=== PATIENT | male | born 1985 | race Caucasian/White ===

== ENCOUNTER 2018-08-20 09:26 | Emergency (ER) | payer MEDICAID ==
[~2018-08-20] VITALS: Ht 180.3 cm; Wt 167.8 kg
[2018-08-20 09:32] VITALS: BP 153/96
== END 2018-08-20 11:07 | disposition home or self-care (01) ==
LOC: ER 09:41
DX: S80.11XA Contusion of right lower leg, initial encounter (principal); F17.210 Nicotine dependence, cigarettes, uncomplicated; W18.39XA Other fall on same level, initial encounter; Y93.89 Activity, other specified; Y99.8 Other external cause status; Y92.89 Other specified places as the place of occurrence of the external cause
CPT/HCPCS: 73590

== ENCOUNTER 2020-07-14 14:55 | Emergency (ER) | payer MEDICAID ==
[~2020-07-14] VITALS: Ht 180.3 cm; Wt 176.9 kg
[2020-07-14 16:04] VITALS: BP 149/95
[2020-07-14] MEDS ORDERED: KETOROLAC TROMETH 60MG/2ML VIAL IM ONE (16:45)
[2020-07-14] MEDS ORDERED: METHOCARBAMOL 500 MG TAB PO ONE (16:45)
== END 2020-07-14 17:13 | disposition home or self-care (01) ==
LOC: ER 14:55
DX: S39.012A Strain of muscle, fascia and tendon of lower back, initial encounter (principal); E66.01 Morbid (severe) obesity due to excess calories; F17.210 Nicotine dependence, cigarettes, uncomplicated; Z68.43 Body mass index [BMI] 50.0-59.9, adult; Z88.8 Allergy status to other drugs, medicaments and biological substances; X58.XXXA Exposure to other specified factors, initial encounter; Y93.89 Activity, other specified; Y92.89 Other specified places as the place of occurrence of the external cause; Y99.8 Other external cause status
CPT/HCPCS: 96372; 99283; J1885

== ENCOUNTER 2020-09-10 16:56 | Emergency (ER) | payer MEDICAID ==
[~2020-09-10] VITALS: Ht 180.3 cm; Wt 172.4 kg
[2020-09-10] MEDS ORDERED: ACETAMINOPHEN 500 MG TAB PO ONE (17:15)
[2020-09-10] MEDS ORDERED: cloNIDine HCL 0.1 MG TAB ONE (17:23)
[2020-09-10] MEDS ORDERED: cloNIDine HCL 0.1 MG TAB PO ONE (17:30)
[2020-09-10] MEDS ORDERED: SODIUM CHLORIDE 0.9% 1,000 ML IV ONE (17:30)
[2020-09-10 19:04] LABS: Basophils # (auto) 0 10 ^3/uL (0-0.2); Basophils % (auto) 0.5 % (0.0-2.0); Eosinophils # (auto) 0 10 ^3/uL (0-0.8); Eosinophils % (auto) 0.1 % (0.0-7.0); Hematocrit 44.5 % (41.0-53.0); Lymphocytes % (auto) 11.7 % (10.0-50.0); Mean Corpuscular Hemoglobin 27.6 pg (28.0-32.0); Mean Corpuscular Hgb Conc. 33.7 g/dL (32.0-36.0); Monocytes # (auto) 0.9 10 ^3/uL (0-1.3); Monocytes % (auto) 11.2 % (0.0-12.0); Neutrophils # (auto) 6.4 10 ^3/uL (1.6-8.6); Neutrophils % (auto) 76.5 % (37.0-80.0); Nucleated Red Blood Cells % 0.1 %; Red Blood Cells 5.43 10^6/uL (4.5-5.90); Red Cell Distribution Width 14.3 % (11.8-14.3); White Blood Cell 8.3 10^3/uL (4.4-10.8)
[2020-09-10 19:10] LABS: Albumin 3.8 g/dL (3.4-5.0); BUN/Creatinine Ratio 7.5; Calcium 8.6 mg/dL (8.5-10.1); Potassium 3.7 mmol/L (3.5-5.1)
[2020-09-10 19:13] LABS: Bilirubin, Total 0.6 mg/dL (0.2-1.0)
[2020-09-10 20:00] VITALS: BP 118/51
[2020-09-10] MEDS ORDERED: ONDANSETRON HCL 4 MG/2 ML VIAL IV ONE (21:00)
[2020-09-10] MEDS ORDERED: HYDROmorphone HCL 2 MG/ML VL IV ONE (21:00)
== END 2020-09-10 20:57 | disposition home or self-care (01) ==
LOC: ER 16:56
DX: I16.0 Hypertensive urgency (principal); I10 Essential (primary) hypertension; E66.01 Morbid (severe) obesity due to excess calories; J45.909 Unspecified asthma, uncomplicated; F17.210 Nicotine dependence, cigarettes, uncomplicated; Z68.43 Body mass index [BMI] 50.0-59.9, adult; Z20.822 Contact with and (suspected) exposure to COVID-19
CPT/HCPCS: 36415; 71045; 80053; 85025; 87426; 93005; 96360; 99285; J7030

== ENCOUNTER 2020-09-11 11:21 | Emergency (ER) | payer MEDICAID ==
[~2020-09-11] VITALS: Ht 180.3 cm; Wt 172.4 kg
[2020-09-11] MEDS ORDERED: ACETAMINOPHEN 500 MG TAB PO ONE (12:00)
[2020-09-11 12:32] LABS: Basophils # (auto) 0 10 ^3/uL (0-0.2); Basophils % (auto) 0.5 % (0.0-2.0); Eosinophils # (auto) 0 10 ^3/uL (0-0.8); Hematocrit 44.5 % (41.0-53.0); Lymphocytes # (auto) 0.9 10 ^3/uL (0.4-5.4); Lymphocytes % (auto) 10.8 % (10.0-50.0); Mean Corpuscular Hemoglobin 27.5 pg (28.0-32.0); Mean Corpuscular Hgb Conc. 33.6 g/dL (32.0-36.0); Mean Corpuscular Volume 81.8 fL (80.0-100.0); Monocytes # (auto) 0.7 10 ^3/uL (0-1.3); Monocytes % (auto) 8.5 % (0.0-12.0); Neutrophils # (auto) 6.4 10 ^3/uL (1.6-8.6); Neutrophils % (auto) 80.2 % (37.0-80.0); Red Blood Cells 5.43 10^6/uL (4.5-5.90); Red Cell Distribution Width 14.1 % (11.8-14.3)
[2020-09-11 12:57] LABS: Albumin 3.9 g/dL (3.4-5.0); Calcium 8.8 mg/dL (8.5-10.1); Potassium 3.7 mmol/L (3.5-5.1)
[2020-09-11 13:01] LABS: BUN/Creatinine Ratio 8.8; Bilirubin, Total 0.8 mg/dL (0.2-1.0); Total Protein 8.4 g/dL (6.4-8.2)
[2020-09-11 14:57] VITALS: BP 116/43
== END 2020-09-11 15:16 | disposition home or self-care (01) ==
LOC: ER 11:21
DX: I16.0 Hypertensive urgency (principal); I10 Essential (primary) hypertension; E66.01 Morbid (severe) obesity due to excess calories; J45.909 Unspecified asthma, uncomplicated; F17.210 Nicotine dependence, cigarettes, uncomplicated; Z68.43 Body mass index [BMI] 50.0-59.9, adult; Z20.822 Contact with and (suspected) exposure to COVID-19; Z88.8 Allergy status to other drugs, medicaments and biological substances
CPT/HCPCS: 36415; 71045; 80053; 82728; 85025; 86141; 87426; 87804; 93005; 99285; C9803; U0003

== ENCOUNTER 2020-09-17 10:10 | Emergency (ER) | payer MEDICAID ==
[~2020-09-17] VITALS: Ht 180.3 cm; Wt 167.8 kg
[2020-09-17 11:00] VITALS: BP 147/85
== END 2020-09-17 13:08 | disposition home or self-care (01) ==
LOC: ER 10:10
DX: G44.209 Tension-type headache, unspecified, not intractable (principal); E86.0 Dehydration; J45.909 Unspecified asthma, uncomplicated; I10 Essential (primary) hypertension; Z90.89 Acquired absence of other organs
CPT/HCPCS: 70450; 81002

== ENCOUNTER 2022-02-05 16:54 | Emergency (ER) | payer MEDICAID ==
[~2022-02-05] VITALS: Ht 180.3 cm; Wt 178.0 kg
[2022-02-05 17:56] VITALS: BP 157/92
[2022-02-05] MEDS ORDERED: methylPREDNISolone SOD SUCC 125 MG/2 ML VL IM ONE (18:00)
[2022-02-05] MEDS ORDERED: AZITTAB PO (18:05)
[2022-02-05] MEDS ORDERED: PRED20TA2 PO (18:05)
[2022-02-05] MEDS ORDERED: IPR002IS HHN (18:15)
[2022-02-05] MEDS ORDERED: ALBU1.257 HHN (18:15)
== END 2022-02-05 20:15 | disposition home or self-care (01) ==
LOC: ER 16:54
DX: J45.901 Unspecified asthma with (acute) exacerbation (principal); I10 Essential (primary) hypertension; F17.200 Nicotine dependence, unspecified, uncomplicated
CPT/HCPCS: 71045; 99283; J2930

== ENCOUNTER 2022-04-11 15:20 | Emergency (ER) | payer MEDICAID ==
[~2022-04-11] VITALS: Ht 180.3 cm; Wt 163.3 kg
[~2022-04-11 15:20] MED LIST: ALBU1.257 HHN; AZITTAB PO; IPR002IS HHN; PRED20TA2 PO
[2022-04-11 17:19] VITALS: BP 175/88
[2022-04-11] MEDS ORDERED: NAPR500T31 PO (17:19)
[2022-04-11] MEDS ORDERED: AUG875T PO (17:32)
== END 2022-04-11 17:31 | disposition home or self-care (01) ==
LOC: ER 15:20
DX: S90.31XA Contusion of right foot, initial encounter (principal); H65.191 Other acute nonsuppurative otitis media, right ear; I10 Essential (primary) hypertension; J45.909 Unspecified asthma, uncomplicated; Z87.891 Personal history of nicotine dependence; Z79.2 Long term (current) use of antibiotics; Z79.1 Long term (current) use of non-steroidal anti-inflammatories (NSAID); Z79.899 Other long term (current) drug therapy; Z88.8 Allergy status to other drugs, medicaments and biological substances; W20.8XXA Other cause of strike by thrown, projected or falling object, initial encounter; Y93.89 Activity, other specified; Y92.89 Other specified places as the place of occurrence of the external cause; Y99.8 Other external cause status
CPT/HCPCS: 73630

== ENCOUNTER 2022-07-04 17:26 | Emergency (ER) | payer MEDICAID ==
[~2022-07-04] VITALS: Ht 180.3 cm; Wt 172.7 kg
[~2022-07-04 17:26] MED LIST changes: +AUG875T PO; +NAPR500T31 PO
[2022-07-04 18:22] LABS: Urine WBC None Seen /hpf (0 - 3)
[2022-07-04 18:28] LABS: Eosinophils # (auto) 0.2 10 ^3/uL (0-0.8); Eosinophils % (auto) 2.3 % (0.0-7.0); Hemoglobin 14.1 g/dL (13.5-17.5); Lymphocytes # (auto) 2.3 10 ^3/uL (0.4-5.4); Mean Corpuscular Hgb Conc. 32.9 g/dL (32.0-36.0); Monocytes # (auto) 0.8 10 ^3/uL (0-1.3); Red Blood Cells 5.23 10^6/uL (4.5-5.90); Red Cell Distribution Width 14.1 % (11.8-14.3)
[2022-07-04 18:30] LABS: Basophils # (auto) 0.1 10 ^3/uL (0-0.2); Basophils % (auto) 0.6 % (0.0-2.0); Hematocrit 42.9 % (41.0-53.0); Lymphocytes % (auto) 21.1 % (10.0-50.0); Mean Corpuscular Volume 82.1 fL (80.0-100.0); Monocytes % (auto) 7.5 % (0.0-12.0); Neutrophils # (auto) 7.4 10 ^3/uL (1.6-8.6); Neutrophils % (auto) 68.5 % (37.0-80.0); Nucleated Red Blood Cells % 0.2 %; White Blood Cell 10.8 10^3/uL (4.4-10.8)
[2022-07-04 18:32] LABS: Urine Bacteria NONE SEEN /hpf (None Seen); Urine Blood Negative /uL (Negative); Urine Specific Gravity 1.026 (1.001-1.035)
[2022-07-04 18:34] LABS: Albumin 4.1 g/dL (3.4-5.0); Calcium 9.2 mg/dL (8.5-10.1); Magnesium 2.3 mg/dL (1.6-2.6); Potassium 4.3 mmol/L (3.5-5.1)
[2022-07-04 18:37] LABS: BUN/Creatinine Ratio 12.5 (10.0-20.0); Bilirubin, Total 0.3 mg/dL (0.2-1.0); Total Protein 7.1 g/dL (6.4-8.2)
[2022-07-04 18:44] LABS: INR 0.95 (0.9-1.15)
[2022-07-04 18:51] LABS: Alcohol, Urine < 3.0 mg/dL (0-10); Amphetamine Screen, Urine NEGATIVE (NEGATIVE); Barbiturate Scree,Urine NEGATIVE (NEGATIVE); Benzodiazephine Screen, Urine NEGATIVE (NEGATIVE); Cannabinoid Screen, Urine NEGATIVE (NEGATIVE); Cocaine Screen, Urine NEGATIVE (NEGATIVE); Opiate Scree,Urine NEGATIVE (NEGATIVE); Phencyclidine Screen, Urine NEGATIVE (NEGATIVE)
[2022-07-04] MEDS ORDERED: CYCL-837 PO (20:29)
[2022-07-04] MEDS ORDERED: IBUP800T26 PO ×2 (20:29)
[2022-07-04 21:10] VITALS: BP 142/96
[2022-07-04] MEDS ORDERED: NAPR500T31 PO (21:15)
== END 2022-07-04 21:11 | disposition home or self-care (01) ==
LOC: ER 17:26
DX: S29.011A Strain of muscle and tendon of front wall of thorax, initial encounter (principal); S46.912A Strain of unspecified muscle, fascia and tendon at shoulder and upper arm level, left arm, initial encounter; E66.01 Morbid (severe) obesity due to excess calories; J45.909 Unspecified asthma, uncomplicated; I10 Essential (primary) hypertension; F17.200 Nicotine dependence, unspecified, uncomplicated; Z68.43 Body mass index [BMI] 50.0-59.9, adult; Z88.8 Allergy status to other drugs, medicaments and biological substances; X58.XXXA Exposure to other specified factors, initial encounter; Y93.89 Activity, other specified; Y92.89 Other specified places as the place of occurrence of the external cause; Y99.8 Other external cause status
CPT/HCPCS: 36415; 71045; 80053; 80307; 81001; 83735; 83880; 84484; 85025; 85610; 85730; 93005

== ENCOUNTER 2022-10-01 10:52 | Emergency (ER) | payer MEDICAID ==
[~2022-10-01] VITALS: Ht 182.9 cm; Wt 175.0 kg
[~2022-10-01 10:52] MED LIST changes: -ALBU1.257 HHN; +ALBU1.258 HHN; +CYCL-837 PO; +NAPR-746 PO; -NAPR500T31 PO
[2022-10-01 11:48] LABS: Basophils # (auto) 0 10 ^3/uL (0-0.2); Basophils % (auto) 0.3 % (0.0-2.0); Eosinophils # (auto) 0.1 10 ^3/uL (0-0.8); Eosinophils % (auto) 1.2 % (0.0-7.0); Hematocrit 43.5 % (41.0-53.0); Hemoglobin 14.5 g/dL (13.5-17.5); Lymphocytes # (auto) 1.3 10 ^3/uL (0.4-5.4); Lymphocytes % (auto) 14.5 % (10.0-50.0); Mean Corpuscular Hemoglobin 27.3 pg (28.0-32.0); Mean Corpuscular Hgb Conc. 33.4 g/dL (32.0-36.0); Mean Corpuscular Volume 81.6 fL (80.0-100.0); Monocytes # (auto) 0.9 10 ^3/uL (0-1.3); Monocytes % (auto) 9.6 % (0.0-12.0); Neutrophils # (auto) 6.7 10 ^3/uL (1.6-8.6); Neutrophils % (auto) 74.4 % (37.0-80.0); Red Blood Cells 5.32 10^6/uL (4.5-5.90); Red Cell Distribution Width 14.2 % (11.8-14.3)
[2022-10-01 12:12] LABS: Albumin 3.3 g/dL (3.4-5.0); Calcium 8.2 mg/dL (8.5-10.1); Potassium 3.9 mmol/L (3.5-5.1)
[2022-10-01 12:15] LABS: BUN/Creatinine Ratio 9.9 (10.0-20.0); Bilirubin, Total 0.3 mg/dL (0.2-1.0); Total Protein 7.5 g/dL (6.4-8.2)
[2022-10-01] MEDS ORDERED: FUROSEMIDE 40 MG/4 ML VIAL IV ONE (13:15)
[2022-10-01] MEDS ORDERED: AZIT1POW PO (15:52)
[2022-10-01 15:53] LABS: COVID19 ANTIGEN SOFIA FIA NEGATIVE (NEGATIVE)
[2022-10-01 16:58] VITALS: BP 148/93; PULSE 103; RESP 19; TEMP 98.6; O2SAT 97
== END 2022-10-01 17:16 | disposition home or self-care (01) ==
LOC: ER 10:52 → EDBD 10:52 → ER 17:16
DX: J20.9 Acute bronchitis, unspecified (principal); R07.89 Other chest pain; R09.89 Other specified symptoms and signs involving the circulatory and respiratory systems; I10 Essential (primary) hypertension; J45.909 Unspecified asthma, uncomplicated; Z90.49 Acquired absence of other specified parts of digestive tract; Z79.2 Long term (current) use of antibiotics; Z79.899 Other long term (current) drug therapy; Z88.8 Allergy status to other drugs, medicaments and biological substances; Z20.822 Contact with and (suspected) exposure to COVID-19
CPT/HCPCS: 36415; 71045; 80053; 83880; 84484; 85025; 87426; 93005; 96374; 99285; J1940

== ENCOUNTER 2022-10-03 06:14 | Emergency (ER) | payer MEDICAID ==
[~2022-10-03] VITALS: Ht 180.3 cm; Wt 170.2 kg
[~2022-10-03 06:14] MED LIST changes: +AZIT1POW PO
[2022-10-03 07:30] LABS: Basophils # (auto) 0 10 ^3/uL (0-0.2); Basophils % (auto) 0.3 % (0.0-2.0); Eosinophils # (auto) 0.1 10 ^3/uL (0-0.8); Eosinophils % (auto) 1.8 % (0.0-7.0); Hematocrit 45.8 % (41.0-53.0); Hemoglobin 15.2 g/dL (13.5-17.5); Lymphocytes # (auto) 1.6 10 ^3/uL (0.4-5.4); Lymphocytes % (auto) 20.7 % (10.0-50.0); Mean Corpuscular Hgb Conc. 33.1 g/dL (32.0-36.0); Mean Corpuscular Volume 81.4 fL (80.0-100.0); Monocytes # (auto) 1.1 10 ^3/uL (0-1.3); Monocytes % (auto) 14.3 % (0.0-12.0); Neutrophils # (auto) 4.8 10 ^3/uL (1.6-8.6); Neutrophils % (auto) 62.9 % (37.0-80.0); Nucleated Red Blood Cells % 0.1 %; Red Blood Cells 5.63 10^6/uL (4.5-5.90); Red Cell Distribution Width 14.2 % (11.8-14.3); White Blood Cell 7.7 10^3/uL (4.4-10.8)
[2022-10-03 07:33] LABS: Urine Bacteria NONE SEEN /hpf (None Seen); Urine Blood Negative /uL (Negative); Urine Clarity Clear (Clear); Urine Color Yellow (Yellow); Urine Protein, UAD TRACE (Negative); Urine Specific Gravity 1.025 (1.001-1.035); Urine Urobilinogen Normal (Negative); Urine WBC 1 /hpf (0 - 3); Urine pH 5.5 (5.0-8.0)
[2022-10-03 07:41] LABS: Potassium 4.9 mmol/L (3.5-5.1)
[2022-10-03 07:49] LABS: Albumin 3.2 g/dL (3.4-5.0); BUN/Creatinine Ratio 10.9 (10.0-20.0); Bilirubin, Total 0.4 mg/dL (0.2-1.0); Calcium 8.5 mg/dL (8.5-10.1); Total Protein 7.8 g/dL (6.4-8.2)
[2022-10-03] MEDS ORDERED: IOHEXOL 350 MG/ML 100ML IJ ONE (09:14)
[2022-10-03] MEDS ORDERED: ENOXAPARIN SOD 150 MG/1 ML SYRINGE SC ONE (09:15)
[2022-10-03 11:07] VITALS: BP 141/89; PULSE 91; RESP 18; TEMP 97.6; O2SAT 97
== END 2022-10-03 11:07 | disposition home or self-care (01) ==
LOC: ER 06:14
DX: I10 Essential (primary) hypertension (principal); J45.909 Unspecified asthma, uncomplicated; R51.9 Headache, unspecified; Z88.6 Allergy status to analgesic agent
CPT/HCPCS: 36415; 70450; 71045; 71275; 80053; 81001; 84484; 85025; 85379; 93005; 96372; 99285; J1650; Q9967

== ENCOUNTER → 2022-11-04 | Outpatient (CLI) | payer MEDICAID | END | disposition home or self-care (01) | LOC: Rad HDHVI 15:32 | PROVIDERS: ATTEND Internal Medicine Cardiovascular Disease | DX: I10 Essential (primary) hypertension (principal) | CPT/HCPCS: 93306 ==

== ENCOUNTER → 2022-11-06 | Outpatient (CLI) | payer MEDICAID ==
[~2022-11-06] VITALS: Ht 180.3 cm; Wt 158.8 kg
== END | disposition home or self-care (01) ==
LOC: Rad HDHVI 14:25
PROVIDERS: ATTEND Internal Medicine Cardiovascular Disease
DX: R07.89 Other chest pain (principal); I10 Essential (primary) hypertension; E78.00 Pure hypercholesterolemia, unspecified; Z82.49 Family history of ischemic heart disease and other diseases of the circulatory system
CPT/HCPCS: 78452; 93017; 96374; A9500

== ENCOUNTER → 2022-11-20 | Outpatient (CLI) | payer MEDICAID | END | disposition home or self-care (01) | LOC: Rad HDHVI 14:45 | PROVIDERS: ATTEND Internal Medicine Cardiovascular Disease | DX: M79.89 Other specified soft tissue disorders (principal) | CPT/HCPCS: 93970 ==

== ENCOUNTER → 2023-08-15 | Outpatient (CLI) | payer MEDICAID ==
[~2023-08-15] MED LIST changes: +ALBU108A5 IN; +IOHEXOL 350 MG/ML 100ML IJ ONE
[2023-08-15 11:50] VITALS: BP 124/73; PULSE 104; RESP 16; O2SAT 94
[2023-08-15 12:09] VITALS: BP 123/66; PULSE 93; RESP 16; O2SAT 94
== END | disposition home or self-care (01) ==
LOC: Rad HDHVI 11:38
PROVIDERS: ATTEND Internal Medicine Cardiovascular Disease
DX: R07.89 Other chest pain (principal); Z79.899 Other long term (current) drug therapy
CPT/HCPCS: 71275; G0463; Q9967

== ENCOUNTER → 2023-08-20 | Outpatient (CLI) | payer MEDICAID ==
[~2023-08-20] VITALS: Ht 180.3 cm; Wt 153.3 kg
[~2023-08-20] MED LIST changes: +ADENOSINE 90 MG/30 ML INJ IV ONE; -IOHEXOL 350 MG/ML 100ML IJ ONE
== END | disposition home or self-care (01) ==
LOC: Rad HDHVI 08:23
PROVIDERS: ATTEND Internal Medicine Cardiovascular Disease
DX: I11.0 Hypertensive heart disease with heart failure (principal); I50.33 Acute on chronic diastolic (congestive) heart failure; R06.02 Shortness of breath; E78.00 Pure hypercholesterolemia, unspecified
CPT/HCPCS: 78452; 93005; 96374; 96375; A9500; J0153

== ENCOUNTER → 2023-08-21 | Outpatient (CLI) | payer MEDICAID ==
[~2023-08-21] MED LIST changes: -ADENOSINE 90 MG/30 ML INJ IV ONE
== END | disposition home or self-care (01) ==
LOC: Rad HDHVI 07:55
PROVIDERS: ATTEND Internal Medicine Cardiovascular Disease
DX: I34.0 Nonrheumatic mitral (valve) insufficiency (principal); R06.02 Shortness of breath; I11.9 Hypertensive heart disease without heart failure
CPT/HCPCS: 93306

== ENCOUNTER → 2023-10-08 | Outpatient (CLI) | payer MEDICAID ==
[~2023-10-08] MED LIST changes: +AMLO1TAB22 PO; +ANGIOMAX 250 MG VIAL IV ONE; +ASPI-543 PO; +BENA10TA16 PO; +CARV6.2517 PO; +CHOL20007 PO; +FURO1TAB31 PO; +LEV75T PO; +LIDOCAINE 2%HCL (LOCAL ANESTH.) INJ 20ML MDV ONE; +MIDAZOLAM HCL 2MG/2ML 2ml VIAL (1mg/ml) ONE; +POTA1TAB4 PO; +SODIUM CHL 0.9% 0 ML ONE; +fentaNYL CITRATE 100 MCG/2 ML VL ONE
[2023-10-08 10:12] VITALS: BP 139/71; PULSE 75; RESP 20; O2SAT 93
[2023-10-08 10:23] VITALS: BP 120/63; PULSE 75; RESP 20; O2SAT 97
[2023-10-08 10:57] LABS: Basophils # (auto) 0.1 10 ^3/uL (0-0.2); Basophils % (auto) 0.8 % (0.0-2.0); Eosinophils # (auto) 0.4 10 ^3/uL (0-0.8); Hematocrit 46.5 % (41.0-53.0); Hemoglobin 15.2 g/dL (13.5-17.5); Lymphocytes # (auto) 1.8 10 ^3/uL (0.4-5.4); Lymphocytes % (auto) 20.3 % (10.0-50.0); Mean Corpuscular Hemoglobin 26.9 pg (28.0-32.0); Mean Corpuscular Hgb Conc. 32.6 g/dL (32.0-36.0); Mean Corpuscular Volume 82.3 fL (80.0-100.0); Monocytes # (auto) 0.8 10 ^3/uL (0-1.3); Monocytes % (auto) 9.5 % (0.0-12.0); Neutrophils # (auto) 5.8 10 ^3/uL (1.6-8.6); Neutrophils % (auto) 65.4 % (37.0-80.0); Red Blood Cells 5.66 10^6/uL (4.5-5.90); Red Cell Distribution Width 14.6 % (11.8-14.3); White Blood Cell 8.9 10^3/uL (4.4-10.8)
[2023-10-08 11:11] LABS: INR 1.03 (0.9-1.15); Partial Thromboplastin Time 28.7 SEC (24.5-34.5); Prothrombin Time 10.9 sec (9.3-11.8)
[2023-10-08 11:42] LABS: Chloride 108 mmol/L (98-107); Potassium 4.5 mmol/L (3.5-5.1); Sodium 142 mmol/L (136-145)
[2023-10-08 11:43] LABS: Anion Gap 4 (5-15); Calcium 9.5 mg/dL (8.7-10.4); Carbon Dioxide 30 mmol/L (20-30)
[2023-10-08 11:48] LABS: BUN/Creatinine Ratio 11.8 (10.0-20.0); Blood Urea Nitrogen 11 mg/dL (9-23); Glucose 94 mg/dL (74-106)
== END | disposition home or self-care (01) ==
LOC: Rad HDHVI 10:03
PROVIDERS: ATTEND Internal Medicine Cardiovascular Disease
DX: Z01.818 Encounter for other preprocedural examination (principal); I42.9 Cardiomyopathy, unspecified; I50.33 Acute on chronic diastolic (congestive) heart failure; R06.02 Shortness of breath
CPT/HCPCS: 36415; 71046; 80048; 85025; 85610; 85730; 93005; G0463

== ENCOUNTER 2023-10-09 08:24 | Day surgery (SDC) | payer MEDICAID ==
[~2023-10-09] VITALS: Ht 180.3 cm; Wt 155.1 kg
[~2023-10-09 08:24] MED LIST changes: -AMLO1TAB22 PO; -ANGIOMAX 250 MG VIAL IV ONE; -AUG875T PO; -AZIT1POW PO; -AZITTAB PO; -IPR002IS HHN; -LIDOCAINE 2%HCL (LOCAL ANESTH.) INJ 20ML MDV ONE; -MIDAZOLAM HCL 2MG/2ML 2ml VIAL (1mg/ml) ONE; -PRED20TA2 PO; -SODIUM CHL 0.9% 0 ML ONE; -fentaNYL CITRATE 100 MCG/2 ML VL ONE
== END 2023-10-09 12:00 | disposition home or self-care (01) ==
LOC: CATH 08:24
PROVIDERS: ATTEND Internal Medicine Cardiovascular Disease
DX: R06.02 Shortness of breath (principal); I42.0 Dilated cardiomyopathy; I10 Essential (primary) hypertension; G47.30 Sleep apnea, unspecified; Z88.8 Allergy status to other drugs, medicaments and biological substances; Z79.82 Long term (current) use of aspirin; Z87.891 Personal history of nicotine dependence
CPT/HCPCS: 93458; C1760; C1894; Q9967; 99152

== ENCOUNTER → 2023-11-17 | Outpatient (CLI) | payer MEDICAID | END | disposition home or self-care (01) | LOC: Rad HDHVI 13:21 | PROVIDERS: ATTEND Internal Medicine Cardiovascular Disease | DX: R06.02 Shortness of breath (principal) | CPT/HCPCS: 71046 ==

== ENCOUNTER → 2023-12-01 | Outpatient (CLI) | payer MEDICAID ==
[~2023-12-01] MED LIST changes: -BENA10TA16 PO; -CARV6.2517 PO; -CYCL-837 PO
== END | disposition home or self-care (01) ==
LOC: Rad HDHVI 11:06
PROVIDERS: ATTEND Internal Medicine Cardiovascular Disease
DX: R06.02 Shortness of breath (principal)
CPT/HCPCS: 71046

== ENCOUNTER → 2023-12-16 | Outpatient (CLI) | payer MEDICAID | END | disposition home or self-care (01) | LOC: Rad HDHVI 10:51 | PROVIDERS: ATTEND Internal Medicine Cardiovascular Disease | DX: I51.7 Cardiomegaly (principal); R07.89 Other chest pain; I50.23 Acute on chronic systolic (congestive) heart failure | CPT/HCPCS: 93306 ==

== ENCOUNTER → 2024-09-20 | Outpatient (CLI) | payer MEDICAID | END | disposition home or self-care (01) | LOC: Rad HDHVI 09:52 | PROVIDERS: ATTEND Internal Medicine Cardiovascular Disease | DX: I07.1 Rheumatic tricuspid insufficiency (principal) | CPT/HCPCS: 93306 ==